=== PATIENT | female | born 1975 ===

== ENCOUNTER 2021-11-30 10:04 | Emergency (ER) | payer SELFPAY ==
[2021-11-30 10:23] VITALS: BP 142/93
--- NOTE | 2021-11-30 17:28 | Emergency Department Report ---
ED Extremity Problem HPI - General Chief complaint: Extremity Problem,Nontraumatic Stated complaint: LEFT LEG PAIN Source: patient Mode of arrival: Ambulatory Limitations: No Limitations - History of Present Illness Initial comments: 45-year-old female presents to the ED complaining of left leg pain x 4 months. 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 She states that she has been using a knee brace to help with moderate relief. Patient states that when she walks she hears a cracking sensation. Patient denies any deformity or trauma. Patient has no obvious edema noted at present time. Patient is ambulatory without any difficulty. She states pain is currently a 5 out of 10. Patient denies any fever chills ,erythema at present. No acute distress noted. No ill appearance noted. MD Complaint: extremity pain Onset/Timin -: month(s) Location: left History of Same: No Severity scale (0 -10): 8 Quality: aching Consistency: intermittent Improves with: nothing, immobilization Associated Symptoms: denies other symptoms - Related Data Previous Rx's Medication Instructions Recorded Last Taken Type Naproxen [Naprosyn] 500 mg PO BID 15 Days #30 tablet 11/30/21 Unknown Rx Allergies Allergy/AdvReac Type Severity Reaction Status Date / Time No Known Allergies Allergy Unverified 11/30/21 10:21 ED Review of Systems ROS: Stated complaint: LEFT LEG PAIN Other details as noted in HPI Constitutional: denies: chills, fever Eyes: denies: eye pain, eye discharge, vision change ENT: denies: ear pain, throat pain Respiratory: denies: cough, shortness of breath, wheezing Cardiovascular: denies: chest pain, palpitations Endocrine: no symptoms reported Gastrointestinal: denies: abdominal pain, nausea, diarrhea Genitourinary: denies: urgency, dysuria, discharge Musculoskeletal: denies: back pain, joint swelling, arthralgia Skin: denies: rash, lesions Neurological: denies: headache, weakness, paresthesias Psychiatric: denies: anxiety, depression Hematological/Lymphatic: denies: easy bleeding, easy bruising ED Past Medical Hx - Medications Home Medications: Home Medications Medication Instructions Recorded Confirmed Last Taken Type Naproxen [Naprosyn] 500 mg PO BID 15 Days #30 tablet 11/30/21 Unknown Rx ED Physical Exam - General Limitations: No Limitations General appearance: alert, in no apparent distress - Head Head exam: Present: atraumatic, normocephalic - Eye Eye exam: Present: normal appearance - ENT ENT exam: Present: mucous membranes moist - Neck Neck exam: Present: normal inspection - Respiratory Respiratory exam: Present: normal lung sounds bilaterally. Absent: respiratory distress - Cardiovascular Cardiovascular Exam: Present: regular rate, normal rhythm. Absent: systolic murmur, diastolic murmur, rubs, gallop - GI/Abdominal GI/Abdominal exam: Present: soft, normal bowel sounds - Extremities Exam Extremities exam: Present: normal inspection - Back Exam Back exam: Present: normal inspection - Neurological Exam Neurological exam: Present: alert, oriented X3 - Psychiatric Psychiatric exam: Present: normal affect, normal mood - Skin Skin exam: Present: warm, dry, intact, normal color. Absent: rash ED Course Vital Signs 11/30/21 10:21 Temperature 98.7 F Pulse Rate 95 H Respiratory 18 Rate Blood Pressure 142/93 [Right] O2 Sat by Pulse 97 Oximetry ED Medical Decision Making - Medical Decision Making 45-year-old female presents to the ED complaining of left leg pain x 4 months. 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 She states that she has been using a knee brace to help with moderate relief. Patient states that when she walks she hears a cracking sensation. Patient denies any deformity or trauma. Patient has no obvious edema noted at present time. Patient is ambulatory without any difficulty. She states pain is currently a 5 out of 10. Patient denies any fever chills ,erythema at present. No acute distress noted. No ill appearance noted. Physical examination patient noted has crepitus on examination. Rechecked the patient is resting quietly quietly and comfortable and feeling better. I discussed the results of diagnostic study, my clinical impression and the plan for further treatment with the patient. Patient agrees with plan and discharge at this present time. All question addressed. I have given the patient instruction regarding a diagnosis ,expectation ,follow- up and return precaution. I explained to the patient that emergent condition may arise and to return to the ED for new worsen and any new persisting condition. I have explained the importance of following up with the primary care physician or referral physician listed below has instructed. The patient verbalized understanding of discharge instruction. Critical care attestation.: If time is entered above; I have spent that time in minutes in the direct care of this critically ill patient, excluding procedure time. ED Disposition Clinical Impression: Left knee pain Qualifiers: Chronicity: acute Qualified Code(s): M25.562 - Pain in left knee Disposition: HOME / SELF CARE / HOMELESS Is pt being admited?: No Does the pt Need Aspirin: No Condition: Stable Instructions: Acute Knee Pain, Adult, Chronic Knee Pain, Adult, [id number], Acute Knee Pain, Adult, [id number] Additional Instructions: Do Not wear knee immobilizer until after the been evaluated by orthopedic Take medication as prescribed Prescriptions: Naproxen [Naprosyn] 500 mg PO BID 15 Days #30 tablet Referrals: PRIMARY CAREMD [Primary Care Provider] - 3-5 Days VICKI ARROYO MD [Staff Physician] - 3-5 Days Forms: Work/School Release Form(ED)
== END 2021-11-30 17:53 | disposition left against medical advice (07) ==
LOC: ED 10:04
DX: M25.562 Pain in left knee (principal)
CPT/HCPCS: 99281